=== PATIENT | female | born 1965 | race Caucasian/White ===

== ENCOUNTER → 2016-04-29 | Outpatient (CLI) | payer OTHER ==
--- NOTE | 2016-04-29 12:22 | XR ---
Right knee HISTORY: Trauma and pain 3 views of the right knee Bone mineralization, joint spaces and alignment are maintained. No sizable joint effusion evident. IMPRESSION: No fracture or dislocation
--- NOTE | 2016-04-29 12:23 | XR ---
Left wrist and left hand HISTORY: Injury, pain 4 views of the left wrist and 3 views of the left hand submitted. Bone mineralization, joint spaces a nd alignment are maintained. Rounded soft tissue metallic density or calcification measuring 2 to 3 m m present at the volar aspect at the level of the thenar eminence is well-corticated and may represen t foreign body or soft tissue granuloma. IMPRESSION: No fracture or dislocation.
== END | disposition home or self-care (01) ==
LOC: RADXRMAIN 11:26
PROVIDERS: ATTEND Emergency Medicine
DX: S60.222A Contusion of left hand, initial encounter (principal); S80.01XA Contusion of right knee, initial encounter; S63.502A Unspecified sprain of left wrist, initial encounter

== ENCOUNTER → 2016-05-05 | Outpatient (CLI) | payer OTHER ==
--- NOTE | 2016-05-05 16:46 | XR ---
EXAMINATION TYPE: XR lumbar spine 2 or 3V DATE OF EXAM: 05/05/2016 4:39 PM CLINICAL HISTORY: Low back pain after fall injury one week ago TECHNIQUE: Frontal, and lateral images of the lumbar spine are obtained. COMPARISON: MRI lumbar spine May 01, 2015 FINDINGS: There are 4 lumbar type vertebral bodies identified. The lumbar spine shows satisfactory alignment without evidence of acute fracture or dislocation. Vertebral body heights and disk space he ights are within normal limits. Facet arthropathy lower lumbar levels is redemonstrated. Cholecystect julián clips are seen in the overlying soft tissue. IMPRESSION: No acute fracture or dislocation is seen in the lumbar spine.
== END | disposition home or self-care (01) ==
LOC: RADXRMAIN 16:23
PROVIDERS: ATTEND Emergency Medicine
DX: M54.5 Low back pain (principal); Z91.81 History of falling
CPT/HCPCS: 72100

== ENCOUNTER → 2016-05-13 | Outpatient (CLI) | payer OTHER ==
--- NOTE | 2016-05-13 08:22 | MR ---
EXAMINATION TYPE: MR knee RT wo con DATE OF EXAM: 05/13/2016 8:03 AM COMPARISON: NONE HISTORY: contusion rt knee TECHNIQUE: Multiplanar, multisequence imaging of the right knee is performed without IV contrast. FINDINGS: MEDIAL MENISCUS: Anterior and posterior horns are intact without tear. LATERAL MENISCUS: Anterior and posterior horns are intact without tear. CRUCIATE LIGAMENTS: The anterior and posterior cruciate ligaments are intact and unremarkable. COLLATERAL LIGAMENTS: The medial collateral ligament and lateral collateral ligament complex are inta ct and unremarkable. EXTENSOR MECHANISM: Visualized quadriceps and patellar tendons are intact. EFFUSION: No significant suprapatellar joint effusion. POPLITEAL CYST: No popliteal/hughes cyst. TRICOMPARTMENT SPACES: Mild degenerative narrowing involving the patellofemoral joint space as well a s the medial tibiofemoral joint space. BONE MARROW SIGNAL: No focal abnormal marrow signal is appreciated. OTHER: No additional significant abnormality is appreciated. IMPRESSION: Mild degenerative change.
== END | disposition home or self-care (01) ==
LOC: RADMRIMAIN 07:10
PROVIDERS: ATTEND Emergency Medicine
DX: S80.01XD Contusion of right knee, subsequent encounter (principal); M17.11 Unilateral primary osteoarthritis, right knee; M54.5 Low back pain